=== PATIENT | male | born 1950 | race Caucasian/White ===

== ENCOUNTER 2025-03-27 07:35 | Outpatient (CLI) | payer OTHER, SELFPAY ==
--- NOTE | ~2025-03-27 | PE_ITS ---
EXAMINATION: PET_PETPSMAST_PT DATE: 03/27/2025 10:35 INDICATION: Prostate cancer TECHNIQUE: 4.834 mCi of Illucix Ga-[id number]) was administered i.v. Low dose computed angy graphy (CT) images were acquired from the base of the brain to the base of the brain to the proximal thighs for attenuation correction and anatomic localization. Positron emission tomography (PET) image s were acquired in the same distribution beginning 90 minutes after injection. Images including fused PET/CT images were reconstructed in axial, coronal, and sagittal planes. Automated exposure control technique was employed. The dose-length product was 1203.34mGy-cm. COMPARISON: None FINDINGS: Head/neck: Typical pattern of symmetric physiologic increased activity in the lacrimal, parotid and submandibula r glands as well as along the mucosa of the nasal and oral cavities, pharynx and hypopharynx. No path ologically enlarged cervical lymphadenopathy or suspicious foci of increased uptake in the visualized head or neck. Chest: Mildly PSV of the 3.4 x 3.3 cm spiculated left apical mass with maximal SUV of 7.4 consistent with me tastatic disease. No other suspicious pulmonary nodules, pneumonia, pulmonary edema or pleural effusi on. Mild cardiomegaly. Atherosclerotic coronary artery calcific lesion. No pericardial effusion. No p athologically enlarged or PSMA avid thoracic lymphadenopathy. Abdomen/pelvis/proximal thighs: Physiologic renal accumulation and excretion of activity in the kidneys, bladder and along portions o f ureters. Enlarged prostate measuring 5.5 x 5.1 cm. There is a focus of prominent increased uptake i n the anterior central aspect of the prostate with maximal SUV of 15.5 consistent with primary prosta te cancer. Normal degree and slightly heterogenous pattern of increased uptake throughout the liver a nd spleen without radiologic correlate or dominant PSMA avid lesion. The gallbladder, pancreas and bi lateral adrenal glands are normal. Moderate uptake scattered throughout the bowels with typical duode nal and proximal jejunal predominance and without radiologic correlate, also likely physiologic. Norm al appendix. No other abnormal foci of increased uptake or pathologically enlarged lymphadenopathy in the abdomen, pelvis or proximal thighs. Musculoskeletal: Left total shoulder arthroplasty. Severe spondylosis. Partial L2 laminectomy and L3-L5 laminectomies with instrumented L2-L3 L4 posterior spinal fusion with bilateral vertical bbo and pedicle screw fixa tion. There is anterior spinal fusion without instrumentation at L4-L5. No suspicious lytic, blastic or abnormally PSMA avid bone lesions. IMPRESSION: 1. Focus of increased uptake in the enlarged prostate consistent with primary prostate cancer. 2. Increased uptake at a 3.4 cm spiculated nodule at the left apex consistent which could represent e ither metastatic prostate cancer or primary lung cancer. No other PSMA avid lesions suspicious for me tastatic disease. Could consider CT-guided percutaneous lung biopsy for definitive determination. Reviewed, dictated and finalized at location B. IMPRESSION: 1. Focus of increased uptake in the enlarged prostate consistent with primary p rostate cancer. 2. Increased uptake at a 3.4 cm spiculated nodule at the left apex consistent w hich could represent either metastatic prostate cancer or primary lung cancer. No other PSMA avid lesions suspicious for metastatic disease. Could consider CT -guided percutaneous lung biopsy for definitive determination.
--- OUTSIDE RECORDS SUMMARY | 2025-03-27 07:39 | XMS_ITS | Clinical Summary ---
Author Organization [facility] [place] Address [address] [place] [address] Care Team Providers Care Electrical Plumbing Supervisor Name Role Phone AidecarlineLaverne Brionesrick Ryan TEE Primary Care Prov ider Allergies Active Allergy Reactions Criticality Noted Date Comments Carvedilol Diarrhea Low 03/04/2021 Cat Dander Dog Dander Grass Pollen Metoprolol Succinate Rash Medium 07/16/2023 Symptomatic bradycardia as well Sulfasalazine Other (See comments) Medium Reaction: gi intolerance, Tree And Shrub Pollen Medications HYDROCODONE-QUETA TAMINOPHEN ORAL 0 1 Active hydroCHLOROthia zide (HYDRODIURIL) 12.5 mg tablet Take 1 tablet (12.5 mg total) by mouth daily Active traZODone (DESYREL) 50 mg tablet Rx: Trazodone HCl Active gluc rogers/chondro rogers A/vit C/Mn (GLUCOSAMINE 1500 COMPLEX ORAL) Rx: Glucosamine Acti ve zolpidem (AMBIEN) 5 mg tabletIndicatio ns:Sleep-Onset Insomnia Take 1 tablet (5 mg total) by mouth nightly as needed for sleep Active rosuvastatin (CRESTOR) 5 mg tablet Take 1 tablet (5 mg total) by mouth daily Active celecoxib (CeleBREX) 200 mg capsule TAKE 1 CAPSULE BY MOUTH TWICE A DAY NEEDED 1 Active amLODIPine (NORVASC) 10 mg tablet Take 1 tablet (10 mg total) by mouth daily 1 Active fluticasone propionate (FLONASE) 50 mcg/actuation nasal spray SPRAY 2 SPRAYS INTO EACH NOSTRIL EVERY DAY 1 Active apple cider vinegar 500 mg tablet Take 1 tablet by mouth daily 2 Active sildenafiL (VIAGRA) 100 mg tablet Take 1 tablet (100 mg total) by mouth daily as needed for erectile dysfunction Active famotidine (PEPCID) 20 mg tablet 5 Active omeprazole (PriLOSEC) 40 mg capsule 5 Active losartan (COZAAR) 100 mg tablet Take 1 tablet (100 mg total) by mouth daily 90 tablet 3 5 01/26/20 26 Active Active Problems Problem Noted Date Diagnosed Date Mixed hyperlipidemia 01/25/2025 Localized edema 01/13/2024 Bradycardia 07/16/2023 Chronic fatigue 07/16/2023 Systolic murmur 07/16/2023 Other forms of dyspnea 07/16/2023 s/p left anatomic total shoulder arthroplasty on 02/17/2021 03/04/2021 Primary osteoarthritis of left shoulder 01/08/20 21 Malignant neoplastic disease 10/08/2014 Overview (01/01/2017): Cancer Hypertension, essential 11/10/2011 Lumbago 11/10/2011 Gastroesophageal reflux disease 11/10/2011 Sinusitis 11/10/2011 Encounters Date Type Department Care Team Description 01/25/2025 9:45 AM CDT Office Visit [facility] Cardiology [address] [facility] [address] [place] [address] Zoran Singer MD Hypertension, essential (Primary Dx); Bradycardia; Mixed hyperlipidemia from Last 3 Months Surgical History Surgery Date Site/Laterality Comments OTHER SURGICAL HISTORY rt elbow BACK SURGERY back surgery OTHER SURGICAL HISTORY lt elbow OTHER SURGICAL HISTORY 2nd back surgery SHOULDER SURGERY ELBOW SURGERY HERNIA REPAIR Medical History Medical History Date Comments Hypercholesteremia Hypertension Osteoarthritis Shortness of breath Cancer (HCC) Bradycardia 07/16/2023 Family History Medical History Relation Name Comments Cancer Brother Heart attack Father Heart disease Father Arthritis Mother Relation Name Status Comments Brother Father Mother Social History Tobacco Use Types Packs/Day Years Used Date Smoking Tobacco: Never Alcohol Use Standard Drinks/Week Comments Yes 0 (1 standard drink = 0.6 oz pur e alcohol) Sex and Gender Information Value Date Recorded Sex Assigned at Not on file 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 Gender Identity Not on file Sexual Orientation Not on file Obstetrics History Last Filed Vital Signs Vital Sign Reading Time Taken Comments Blood Pressure 146/68 01/25/2025 9:46 AM CDT Pulse 60 01/25/2025 9:46 AM CDT Temperature 36.7 C (98.1 F) 02/17/2021 7:19 AM CDT Respiratory Rate - - Oxygen Saturation 98% 01/25/2025 9:46 AM CDT Inhaled Oxygen Concentration - - Weight 92.5 kg (204 lb) 01/25/2025 9:46 AM CDT Height 182.9 cm (6') 01/25/2025 9:46 AM CDT Body Mass Index 27.67 01/25/2025 9:46 AM CDT Plan of Treatment Health Maintenance Due Date Last Done Comments Depression Screening 1950 Fall Risk Assessment 1950 Hepatitis C Screening 1950 DTaP/Tdap/Td Vaccine (1 - Tdap) 01/31/1960 Hepatitis B Screening 1967 Well Visit 65+ 2014 Influenza Vaccine (Season Ended) 2025 07/02/2020, 06/13/2019, 05/31/2018, Additional history exists Pneumococcal vaccine 65+ Completed 06/01/2017, 07/28 Zoster Vaccine Completed 11/26/2018, 05/31/2018 Procedures Procedure Name Priority Date/Time Associated Diagnosis Comments POCT LIPID PANEL Routine 01/25/2025 9:39 AM CDT Mixed hyperlipidemia from Last 3 Months Results * POCT lipid panel (01/25/2025 9:39 AM CDT) Cholesterol, POC 150 <200 MG/DL HDL, POC 61 >=40 mg/dL Triglycerides, POC 81 <=149 mg/dL LDL Cholesterol POC 73 <=129 mg/dL Chol/HDL Ratio, POC 1.2 NONE Non-HDL Cholesterol, POC 89 NONE mg/dL Cholesterol Total, POC 150 30 - 199 mg/dL Capillary blood 01/25/2025 9 :39 AM CDT [facility] Adalberto Singer MD POINT OF CARE TEST CHRIS BENNETT Final Result from Last 3 Months Insurance [facility] Advance Directives For more information, please contact: [phone] Documents on File Type Date Recorded Patient Chemist Inorganic Expl anation ADVANCE DIRECTIVE 10/05/2016 12:00 AM ADRIEL Yoo WILL ADVANCE DIRECTIVE 10/05/2016 12:00 AM POWER OF TECHNOLOGY SPECIALIST FINANCIAL/MEDICAL Care Teams Electrical Plumbing Supervisor Relationship Specialty Start Date End Date Jean Pierre Shaikh DO PCP - General Family Medicine 01/01/21
--- OUTSIDE RECORDS SUMMARY | 2025-03-27 07:39 | XMS_ITS | Encounter Summary ---
Author Organization [facility] Facility Care Team Providers Care Visitor Services Technician Name Role Phone Julio C Palafox MD Primary Care Provider +1- [phone] Jean Pierre Shaikh DO Primary Care Prov ider Encounter Details Date Type Department Care Team (Latest Contact Info) Description 10/28/2016 Orders Only [facility]INCON[facility] ProviderSakshi MD [address] [place] [address] Social History Tobacco Use Types Packs/Day Years Used Date Smoking Tobacco: Never Alcohol Use Standard Drinks/Week Comments Yes 0 (1 standard drink = 0.6 oz pur e alcohol) Sex and Gender Information Value Date Recorded Sex Assigned at Not on file Legal Sex Male 9:38 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 Historical Provider Final Res ult documented in this encounter Visit Diagnoses Not on filedocumented in this encounter Care Teams Visitor Services Technician Relationship Specialty Start Date End Date Julio C Palafox MD [address] [facility] [address] [place] [address] PCP - General 12/28/12 12/31/20 Jean Pierre Shaikh DO [address] [facility] [address] [place] [address] PCP - General Family Medicine 01/01/21 documented as of this encounter
--- OUTSIDE RECORDS SUMMARY | 2025-03-27 07:39 | XMS_ITS | Referral Summary ---
Author Organization [facility] [place] Address [address] [place] [address] Care Team Providers Care Passenger Car Cleaning Supervisor Name Role Phone AidecarlineJean Pierre Briones DO Primary Care Prov ider Encounters Date Type Department Care Team Description 01/25/2025 9:45 AM CDT Office Visit [facility] Cardiology [address] [place] [id number] Zoran Singer MD Hypertension, essential (Primary Dx); Bradycardia; Mixed hyperlipidemia from Last 3 Months Allergies Active Allergy Reactions Criticality Noted Date [...] 11/10/2011 Gastroesophageal reflux disease 11/10/2011 Sinusitis 11/10/2011 Social History Tobacco Use Types Packs/Day Years Used Date Smoking Tobacco: Never Alcohol Use Standard Drinks/Week Comments Yes 0 (1 standard drink = 0.6 oz pur e alcohol) Sex and Gender Information Value Date Recorded Sex Assigned at Not on file Legal Sex Male 9:38 AM OR RN Gender Identity Not on file Sexual Orientation Not on file Last Filed Vital Signs Vital Sign Reading [...] 01/25/2025 9:46 AM CDT Plan of Treatment Not on file Procedures Procedure Name Priority Date/Time Associated Diagnosis [...] Capillary blood 01/25/2025 9 :39 AM CDT [facility] Adalberto Singer MD POINT OF CARE TEST CHRIS BENNETT Final Result from Last 3 Months Insurance [facility] [place] [facility] [place] Advance Directives For more information, please contact: [phone] Documents on File Type Date Recorded Patient Certified Substance Abuse Counselor Expl anation ADVANCE DIRECTIVE 10/05/2016 12:00 AM ADRIEL MORA ADVANCE DIRECTIVE 10/05/2016 12:00 AM POWER OF DESIZING MACHINE OPERATOR FINANCIAL/MEDICAL Care Teams Passenger Car Cleaning Supervisor Relationship Specialty Start Date End Date Jean Pierre Shaikh DO PCP - General Family Medicine 01/01/21
--- OUTSIDE RECORDS SUMMARY | 2025-03-27 07:39 | XMS_ITS | Encounter Summary ---
Author Organization [facility] Facility Care Team Providers Care Engineering Technologist Name Role Phone Julio C Palafox MD Primary Care Provider +1- [phone] Jean Pierre Shaikh DO Primary Care Prov ider Encounter Details Date Type Department Care Team (Latest Contact Info) Description 10/20/2016 Orders Only [facility] CLINCONV ProviderSakshi MD [address] [place] [address] Social History Tobacco Use Types Packs/Day Years Used Date Smoking Tobacco: Never Alcohol Use Standard Drinks/Week Comments Yes 0 (1 standard drink = 0.6 oz pur e alcohol) Sex and Gender Information Value Date Recorded Sex Assigned at Not on file Legal 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 Historical Provider Final Res ult * PROCEDURE - RESULT (10/20/2016 12:00 AM ECHO TECHNOLOGIST) Narrative 10/20/2016 12:00 AM ECHO TECHNOLOGIST Ordered by an unspecified provider. us Historical Provider Final Res ult documented in this encounter Visit Diagnoses Not on filedocumented in this encounter Care Teams Engineering Technologist Relationship Specialty Start Date End Date Julio C Palafox MD [address] [place] [address] PCP - General 12/28/12 12/31/20 Jean Pierre Shaikh DO [address] [place], [place] [id number] PCP - General Family Medicine 01/01/21 documented as of this encounter
--- OUTSIDE RECORDS SUMMARY | 2025-03-27 07:39 | XMS_ITS | Clinical Summary ---
Author Organization [facility] Address [address] [address] Care Team Providers Care Home Manager Name Role Phone Julio C Palafox Natividad TEE Primary Care Provider Source Comments [facility],non-owned Affiliates and Associated Physician Practices is amultiple site organization consisting of ambulatory clinics and hospital sitesin [place], [place], [place] and [place]. This disclosure is being madepursuant to the Care Everywhere program and may not contain all information available regarding this patient. Last updated 18.[facility] [employer] Social History Tobacco Use Types Packs/Day Years Used Date Smoking Tobacco: Never Assessed Sex and Gender Information Value Date Recorded Sex Assigned at Not on file Legal Sex Male 6:53 AM TECHNICAL EDITOR Gender Identity Not on file Sexual Orientation Not on file Plan of Treatment Health Maintenance Due Date Last Done Comments HEPATITIS C SCREENING 01/26/1967 DTAP/TDAP/TD VACCINES (1 - Tdap) 01/31/1968 PNEUMOCOCCAL VACCINE 50+ (1 of 1 - PCV) 1999 ZOSTER VACCINE (1 of 2) 1999 Respiratory Syncytial Virus (RSV) Vaccine Pt: or over 60 yrs (1 - 1-dose 75+ series) 01/31/2024 COVID-19 VACCINE ( - 2023-2 5 season) 2024 DEPRESSION SCREENING 09/27/2024 INFLUENZA VACCINE (Season Ended) 2025 HEPATITIS B VACCINE Aged Out No longe r eligible based on patient's age to complete this topic HIB VACCINE Aged Out No longer eligi ble based on patient's age to complete this topic HPV VACCINE Aged Out No longer eligi ble based on patient's age to complete this topic MENINGOCOCCAL (Group B) VACC INE SHARED DECISION-MAKING Aged Out No longer eligibl e based on patient's age to complete this topic MENINGOCOCCAL GROUPS A/C/Y/W VACCINE Aged Out No longer eligible b ased on patient's age to complete this topic Insurance [employer] Care Teams Home Manager Relationship Specialty Start Date End Date Julio C Palafox DO [address] [facility] [address] [place], [place] [id number] PCP - General Internal Medicine 10/08/14
--- OUTSIDE RECORDS SUMMARY | 2025-03-27 07:39 | XMS_ITS | Encounter Summary ---
Author Organization [facility] Facility Care Team Providers Care Internet Specialist Name Role Phone Julio C Palafox MD Primary Care Provider +1- [phone] Jean Pierre Shaikh DO Primary Care Prov ider Encounter Details Date Type Department Care Team (Latest Contact Info) Description 09/15/2016 Orders Only [facility] CLINCONV ProviderSakshi MD [address] [place] [address] Social History Tobacco Use Types Packs/Day Years Used Date Smoking Tobacco: Never Alcohol Use Standard Drinks/Week Comments Yes 0 (1 standard drink = 0.6 oz pur e alcohol) Sex and Gender Information Value Date Recorded Sex Assigned at Not on file Legal Sex Male 9:38 AM COMMUNITY 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 Historical Provider Final Res ult documented in this encounter Visit Diagnoses Not on filedocumented in this encounter Care Teams Internet Specialist Relationship Specialty Start Date End Date Julio C Palafox MD [address] [facility] [address] [place] [address] PCP - General 12/28/12 12/31/20 Jean Pierre Shaikh DO [address] [facility] [address] [place] [address] PCP - General Family Medicine 01/01/21 documented as of this encounter
--- OUTSIDE RECORDS SUMMARY | 2025-03-27 07:39 | XMS_ITS | Encounter Summary ---
Author Organization [facility] Facility Care Team Providers Care Neon Sign Maker Name Role Phone Julio C Palafox MD Primary Care Provider +1- [phone] Jean Pierre Shaikh DO Primary Care Prov ider Encounter Details Date Type Department Care Team (Latest Contact Info) Description 09/14/2016 Orders Only [facility] CLINCONV ProviderSakshi MD [address] [place] [address] Social History Tobacco Use Types Packs/Day Years Used Date Smoking Tobacco: Never Alcohol Use Standard Drinks/Week Comments Yes 0 (1 standard drink = 0.6 oz pur e alcohol) Sex and Gender Information Value Date Recorded Sex Assigned at Not on file Legal Sex Male 9:38 AM DISPUTE SPECIALIST Gender Identity Not on file Sexual Orientation Not on file documented as of this encounter Plan of Treatment Not on file documented as of this encounter Procedures Procedure Name Priority Date/Time Associated Diagnosis Comments PROCEDURE - RESULT 09/14/2016 12 :00 AM DISPUTE SPECIALIST documented in this encounter Results * PROCEDURE - RESULT (09/14/2016 12:00 AM DISPUTE SPECIALIST) Narrative 09/14/2016 12:00 AM DISPUTE SPECIALIST Ordered by an unspecified provider. Historical Provider Final Res ult documented in this encounter Visit Diagnoses Not on filedocumented in this encounter Care Teams Neon Sign Maker Relationship Specialty Start Date End Date Julio C Palafox MD [address] [facility] [address] [place] [address] PCP - General 12/28/12 12/31/20 Jean Pierre Shaikh DO [address] [facility] [address] [place] [address] PCP - General Family Medicine 01/01/21 documented as of this encounter
== END 2025-03-27 07:36 | disposition home or self-care (01) ==
PROVIDERS: PCP Family Medicine; Visit Provider Radiology Radiation Oncology
DX: C61 Malignant neoplasm of prostate (principal); Z51.0 Encounter for antineoplastic radiation therapy
CPT/HCPCS: 78815; A9596